=== PATIENT | female | born 1960 | race Caucasian/White ===

== ENCOUNTER 2017-07-17 00:07 | Emergency (ER) | payer BC, OTHER ==
[2017-07-17 01:07] VITALS: BP 153/101
--- NOTE | 2017-07-17 01:08 | EDM.PDOC ---
ED HPI GENERAL MEDICAL PROBLEM - General Chief Complaint: Skin Complaint Stated Complaint: STEPPED ON A NEEDLE Time Seen by Provider: 07/17/17 01:02 Source of Information: Reports: Patient, RN Notes Reviewed History Limitations: Reports: No Limitations - History of Present Illness INITIAL COMMENTS - FREE TEXT/NARRATIVE: 57-year-old female presents to the emergency department today where she stepped on a sewing needle left foot and she is concerned it may have broken off the area is exquisitely tender around the puncture wound Left Feet Pain Score (Numeric/FACES): 2 - Related Data Allergies Allergy/AdvReac Type Severity Reaction Status Date / Time ciprofloxacin [From Cipro] Allergy Cannot Verified 07/17/17 00:55 Remember codeine Allergy Itching Verified 07/17/17 00:55 Home Meds: Home Meds Levothyroxine Sodium [Levothyroxine Sodium] 1 tab PO DAILY 08/02/16 [History] Past Medical History 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: Musculoskeletal History: Reports: Fracture Endocrine/Metabolic History: Reports: Hypothyroidism - Infectious Disease History Infectious Disease History: Reports: Chicken Pox, Measles, Mumps - Past Surgical History HEENT Surgical History: Reports: Oral Surgery GI Surgical History: Reports: Appendectomy, Small Bowel Social & Family History - Tobacco Use Smoking Status *Q: Current Every Day Smoker Years of Tobacco use: 35 Packs/Tins Daily: 0.2 Used Tobacco, but Quit: No Second Hand Smoke Exposure: Yes - Caffeine Use Caffeine Use: Reports: Coffee, Soda, Tea - Alcohol Use Days Per Week of Alcohol Use: 0 - Recreational Drug Use Recreational Drug Use: No ED ROS GENERAL - Review of Systems Review Of Systems: See Below Constitutional: Reports: No Symptoms Skin: Reports: Wound ED EXAM, SKIN/RASH Exam: See Below Text/Narrative:: Examination of the left foot there is a small puncture wound plantar surface near the fifth metatarsal joint, exquisitely tender to touch pedal pulse is +2 Exam Limited By: No Limitations General Appearance: Alert, WD/WN, No Apparent Distress Course - Vital Signs Last Recorded V/S: Last Vital Signs Temp 97.7 F 07/17/17 01:10 Pulse 79 07/17/17 01:10 Resp 16 07/17/17 01:10 BP 153/101 H 07/17/17 01:10 Pulse Ox 96 07/17/17 01:10 - Orders/Labs/Meds Orders: Active Orders 24 hr Category Date Time Status Vaccines to be Administered [RC] PER UNIT ROUTINE Care 07/17/17 01:51 Active Foot Comp Min 3V Lt [CR] Stat Exams 07/17/17 01:05 Taken Meds: Medications Discontinued Medications Generic Name Dose Route Start Last Admin Trade Name Sophia PRN Reason Stop Dose Admin Cefazolin Sodium 1 gm 07/17/17 01:47 Ancef IM 07/17/17 01:48 ONETIME ONE Diphtheria/Tetanus/Acell Pertussis 0.5 ml 07/17/17 01:51 Adacel IM 07/17/17 01:52 .ONCE ONE Departure - Departure Time of Disposition: 01:56 Disposition: Home, Self-Care 01 Condition: Good Clinical Impression: Foreign body foot/toe - Discharge Information Referrals: Geno Marlow PA [Primary Care Provider] - Forms: ED Department Discharge Additional Instructions: Use hydrocodone as needed for pain control, please report to outpatient surgery at 8 AM tomorrow morning to be registered for an exploratory surgery to remove the sewing needle from her foot - My Orders Last 24 Hours: My Active Orders 07/17/17 01:05 Foot Comp Min 3V Lt [CR] Stat 07/17/17 01:51 Vaccines to be Administered [RC] PER UNIT ROUTINE - Assessment/Plan Last 24 Hours: My Active Orders 07/17/17 01:05 Foot Comp Min 3V Lt [CR] Stat 07/17/17 01:51 Vaccines to be Administered [RC] PER UNIT ROUTINE Plan: Assessment Acuity = acute Site and laterality = foreign body left foot Etiology = stepped on a sewing needle Manifestations = none Location of injury = Home Lab values = x-ray displays the foreign body Plan Called discussed case with Dr. Preston general surgeon on-call plan for exploratory surgery and removal of the foreign body tomorrow morning at 9:00, she is given 1 g Ancef tetanus was updated provided hydrocodone 5/325 one tab by mouth 3 times a day when necessary total #10 Patient was in agreement with the plan all questions were answered, they were instructed to return to the emergency department or call for worsening symptoms. This note was dictated using [employer] voice recognition software please call with any questions.
[2017-07-17] MEDS ORDERED: ceFAZolin 1 GM Vial IM ONE (01:47)
[2017-07-17] MEDS ORDERED: Diphtheria,Pertussis(Acell),Tetanus Vaccine 0.5 ML SDV IM ONE (01:51)
--- NOTE | 2017-07-19 09:13 | CR ---
Left foot There is a needle fragment embedded within the plantar soft tissues of the lateral forefoot. There is no bone involvement. Impression: 1. Foreign body lateral aspect of the forefoot.
== END 2017-07-17 02:50 | disposition home or self-care (01) ==
LOC: JP.ED 00:07
DX: S91.342A Puncture wound with foreign body, left foot, initial encounter (principal); E03.9 Hypothyroidism, unspecified; F17.210 Nicotine dependence, cigarettes, uncomplicated; Z88.5 Allergy status to narcotic agent; Z88.1 Allergy status to other antibiotic agents; Z79.899 Other long term (current) drug therapy; Z23 Encounter for immunization; W45.8XXA Other foreign body or object entering through skin, initial encounter
CPT/HCPCS: 73630; 90471; 90715; 96372; 99284; J0690

== ENCOUNTER → 2017-07-17 | Day surgery (SDC) | payer BC ==
[~2017-07-17] MED LIST: Bacitracin Oint 1 GM U/D Packet ONE; Bupivacaine 0.5% 50 ML MDV ONE; Lidocaine 1% with EPINEPHrine 1:100,000 50 ML MDV ONE; Midazolam 1 MG/ML 2 ML SDV ONE; Propofol 200 MG/20 ML SDV ONE; ceFAZolin 2 GM in Premix Bag 1 BAG IV ONE; fentaNYL 100 MCG/2 ML SDV ONE
[2017-07-17 12:29] VITALS: BP 130/81
--- NOTE | 2017-07-19 10:42 | OR ---
DATE OF PROCEDURE: 07/17/2017 PROCEDURE: Removal of foreign body, left foot, needle, located between fourth and fifth metatarsal. COMPLICATIONS: None. PARISH NURSE: None. ANESTHESIA: MAC/local. RISKS: Risks, benefits, alternatives, limitations including, but not limited to infection, bleeding, injury to neurovascular structures were explained to the patient, and she wished to proceed. PROCEDURE IN DETAIL: The patient was placed in supine position. The foot was prepped and draped. Using intraoperative fluoroscopy, the needle was localized. An incision approximately 5 mm to a centimeter was made, and this allowed entry and extraction of the needle with mild difficulty. Of note, no blind grabbing or any other maneuvers which could damage nerves or blood vessels were performed. The wound was then irrigated and closed with 3-0 Vicryl and 3-0 Prolene interrupted stitches. The patient tolerated the procedure well. Adebayo Preston MD /[id number]
== END | disposition home or self-care (01) ==
LOC: EDSTATUS 08:36 → JP.SDS 09:32
PROVIDERS: ATTEND Surgery
DX: S91.342A Puncture wound with foreign body, left foot, initial encounter (principal); Z88.5 Allergy status to narcotic agent; Z88.8 Allergy status to other drugs, medicaments and biological substances; Z88.1 Allergy status to other antibiotic agents; E03.9 Hypothyroidism, unspecified; F17.210 Nicotine dependence, cigarettes, uncomplicated; Z79.899 Other long term (current) drug therapy; Z23 Encounter for immunization; W45.8XXA Other foreign body or object entering through skin, initial encounter
CPT/HCPCS: 10120; 73630; 76000; 90471; 90715; 96372; 99284; J0690; J2250; J2704; J3010

== ENCOUNTER 2017-08-26 07:59 | Day surgery (SDC) | payer BC ==
[~2017-08-26 07:59] MED LIST changes: -Bacitracin Oint 1 GM U/D Packet ONE; -Bupivacaine 0.5% 50 ML MDV ONE; -Lidocaine 1% with EPINEPHrine 1:100,000 50 ML MDV ONE; +Meropenem 500 MG SDV ONE; -Midazolam 1 MG/ML 2 ML SDV ONE; -Propofol 200 MG/20 ML SDV ONE; -ceFAZolin 2 GM in Premix Bag 1 BAG IV ONE; -fentaNYL 100 MCG/2 ML SDV ONE
[2017-08-26] MEDS: Bupivacaine 0.5% 50 ML MDV ONE ×2 (08:06→09:25)
[2017-08-26] MEDS: Lidocaine 1% with EPINEPHrine 1:100,000 50 ML MDV ONE ×2 (08:06→09:25)
[2017-08-26] MEDS ORDERED: Propofol 200 MG/20 ML SDV ONE (08:14)
[2017-08-26] MEDS ORDERED: fentaNYL 100 MCG/2 ML SDV ONE (08:14)
[2017-08-26] MEDS ORDERED: Midazolam 1 MG/ML 2 ML SDV ONE (08:14)
[2017-08-26] MEDS ORDERED: Dextrose 5%-Lactated Ringers 1,000 ML IV SCH (08:45)
[2017-08-26 11:10] VITALS: BP 135/76
--- NOTE | 2017-08-30 16:48 | OR ---
DATE OF PROCEDURE: 08/26/2017 PREOPERATIVE DIAGNOSIS: Incompletely drained infected puncture wound, plantar aspect of the left foot. POSTOPERATIVE DIAGNOSIS: Incompletely drained infected puncture wound, plantar aspect of the left foot. OPERATIVE PROCEDURE: 1. Drainage of partially drained and infected wound, plantar aspect of the left foot (02018). 2. Debridement of soft tissue extending from skin and subcutaneous tissue down to the underlying fascia at infected wound site, plantar aspect of the left foot ([id number]). ANESTHESIA: Local plus IV sedation. INDICATIONS FOR PROCEDURE: The patient presents with an open wound after removal of foreign body from the plantar aspect of her left foot. This has become a very tender area that appears to have some degree of infection and incomplete drainage due to the relative indolent tract inherent in the original injury. Plan is to proceed with drainage and debridement of this in the operating room. Potential risks including further bleeding and infection were all gone over and the patient wishes to proceed. DETAILS OF PROCEDURE: The patient was taken to the operating room, placed in a supine position. IV sedation was administered, after which the left foot and surrounding areas were prepped and draped. Initially, a circular incision around the puncture site was made; somewhat purulent material was then expressed where the cultures were obtained. Upon drainage of this, further skin and subcutaneous tissue of the underlying fascia were then debrided to create a relatively open wound, which would facilitate adequate drainage and a secondary closure. The wound was packed with iodoform gauze. Dressing applied. There were no other complications. The patient was taken to the recovery room in satisfactory condition. Terence Moran MD /[id number]
== END 2017-08-26 11:22 | disposition home or self-care (01) ==
LOC: JP.SDS 07:59
PROVIDERS: ATTEND Surgery
DX: S91.332A Puncture wound without foreign body, left foot, initial encounter (principal); J45.909 Unspecified asthma, uncomplicated; K21.9 Gastro-esophageal reflux disease without esophagitis; E03.9 Hypothyroidism, unspecified; E66.9 Obesity, unspecified; Z88.1 Allergy status to other antibiotic agents; Z88.8 Allergy status to other drugs, medicaments and biological substances; F17.210 Nicotine dependence, cigarettes, uncomplicated; X58.XXXA Exposure to other specified factors, initial encounter
CPT/HCPCS: 10061; 11043; 87070; 87075; 87077; 87186; 87205; J2250; J2704; J3010; J7042; J2185

== ENCOUNTER 2018-10-19 20:32 | Emergency (ER) | payer BC ==
[2018-10-19 20:55] VITALS: BP 164/96
--- NOTE | 2018-10-19 21:42 | EDM.PDOC ---
ED HPI GENERAL MEDICAL PROBLEM - General Chief Complaint: ENT Problem Stated Complaint: SORE THROAT Time Seen by Provider: 10/19/18 20:34 Source of Information: Reports: Patient, Family () History Limitations: Reports: No Limitations - History of Present Illness INITIAL COMMENTS - FREE TEXT/NARRATIVE: chief complaint: sore throat and cough This is a 58 year old female present to ER after being sent home from work. 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 She reports last night started to get sick, throat is so sore can barely speak, cough is starting today. immunization: Flu shot given this season Tobacco use: smoke 1/2 to 1 pack per day his Onset: Gradual Onset Date: 10/18/18 Duration: Day(s): (1), Getting Worse Location: Reports: Chest (cough), Other (sore throat ) Quality: Reports: Ache, Burning Severity: Moderate Improves with: Reports: None Worsens with: Reports: None Context: Reports: Sick Contact (exposure to sick people at work) Associated Symptoms: Reports: Cough, Fever/Chills, Malaise - Related Data Allergies Allergy/AdvReac Type Severity Reaction Status Date / Time ciprofloxacin [From Cipro] Allergy Cannot Verified 10/19/18 21:05 Remember codeine Allergy Itching Verified 10/19/18 21:05 diphenhydramine Allergy Itching Verified 10/19/18 21:05 [From Benadryl] naproxen Allergy Body Aches Verified 10/19/18 21:05 Home Meds: Home Meds Levothyroxine Sodium 50 mcg PO DAILY 08/02/16 [History] Ascorbic Acid [Vitamin C] 1,000 mg PO DAILY 08/25/17 [History] Cetirizine HCl [Zyrtec] 10 mg PO BID PRN 08/25/17 [History] L.acidoph,Paracasei, B.lactis [Probiotic] 1 each PO DAILY 08/25/17 [History] Magnesium Oxide [Magnesium] 400 mg PO DAILY 08/25/17 [History] Multivitamin [Multi-Vitamin Daily] 1 each PO DAILY 08/25/17 [History] Sandy-3/DHA/Epa/Fish Oil [Sandy-3 Fish Oil 1,000 MG Sfgl] 1,000 mg PO DAILY 11/07 [History] Fluticasone Propionate [Flonase] 1 puff NASBOTH DAILY PRN 08/26/17 [History] metFORMIN HCl [Metformin HCl ER] 500 mg PO BID 10/19/18 [History] Past Medical History HEENT History: Reports: None Cardiovascular History: Reports: None Respiratory History: Reports: Asthma Gastrointestinal History: Reports: Bowel Obstruction Genitourinary History: Reports: None 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: Reports: Dysfunctional Uterine Bleeding, Musculoskeletal History: Reports: Fracture Neurological History: Reports: Concussion Psychiatric History: Reports: None Endocrine/Metabolic History: Reports: Diabetes, Type II, Hypothyroidism Hematologic History: Reports: Blood Transfusion(s) Immunologic History: Reports: None Oncologic (Cancer) History: Reports: None Dermatologic History: Reports: None - Infectious Disease History Infectious Disease History: Reports: Chicken Pox, Measles, Mumps - Past Surgical History Head Surgeries/Procedures: Reports: None HEENT Surgical History: Reports: Oral Surgery Other HEENT Surgeries/Procedures: cleft palate Cardiovascular Surgical History: Reports: None Respiratory Surgical History: Reports: None GI Surgical History: Reports: Appendectomy, Small Bowel Female Surgical History: Reports: D&C, Tubal Ligation Endocrine Surgical History: Reports: None Neurological Surgical History: Reports: None Musculoskeletal Surgical History: Reports: None Oncologic Surgical History: Reports: None Dermatological Surgical History: Reports: None Social & Family History - Family History Family Medical History: Noncontributory - Tobacco Use Smoking Status *Q: Current Every Day Smoker Years of Tobacco use: 23 Packs/Tins Daily: 0.5 - Caffeine Use Caffeine Use: Reports: Coffee - Recreational Drug Use Recreational Drug Use: No - Living Situation & Occupation Living situation: Reports: Occupation: Employed ED ROS ENT - Review of Systems Review Of Systems: See Below Constitutional: Reports: Fever, Malaise HEENT: Reports: Throat Pain, Throat Swelling Respiratory: Reports: Cough Cardiovascular: Reports: No Symptoms Endocrine: Reports: No Symptoms GI/Abdominal: Reports: No Symptoms Skin: Reports: No Symptoms Neurological: Reports: No Symptoms Psychiatric: Reports: No Symptoms Hematologic/Lymphatic: Reports: No Symptoms Immunologic: Reports: No Symptoms ED EXAM, ENT - Physical Exam Exam: See Below Exam Limited By: No Limitations General Appearance: Alert, WD/WN, Mild Distress (appear ill, voice is hoarse, wearing mask. ) Eye Exam: Bilateral Eye: Normal Inspection Ears: Normal External Exam, Normal Canal, Hearing Grossly Normal, Normal TMs Nose: Normal Inspection, Normal Mucousa, No Blood Mouth/Throat: Normal Gums, Normal Lips, Normal Teeth, Hoarse Voice, Tonsillar Erythema, Tonsillar Swelling Head: Atraumatic, Normocephalic Neck: Lymphadenopathy (R), Lymphadenopathy (L) Respiratory/Chest: Decreased Breath Sounds (bilateral), Rhonchi (with cough), Other (cough noted.) Cardiovascular: Regular Rate, Rhythm, No Edema, No Murmur GI/Abdominal: Normal Bowel Sounds, Soft, Non-Tender Back: Normal Inspection, Full Range of Motion Extremities: Normal Inspection, Normal Range of Motion Neurological: No Motor/Sensory Deficits Psychiatric: Normal Affect, Normal Mood Skin: Warm, Dry, Intact, Normal Color, No Rash Lymphatic: Adenopathy (cervical) Course - Vital Signs Last Recorded V/S: Last Vital Signs Temp 36.2 C 10/19/18 21:07 Pulse 63 10/19/18 21:07 Resp 16 10/19/18 21:07 BP 164/96 H 10/19/18 21:07 Pulse Ox 98 10/19/18 21:07 - Orders/Labs/Meds Orders: Active Orders 24 hr Category Date Time Status CULTURE STREP A CONFIRMATION [RM] Urgent Lab 10/19/18 20:57 Results STREP SCRN A RAPID W CULT CONF [RM] Urgent Lab 10/19/18 20:57 Results - Re-Assessments/Exams Free Text/Narrative Re-Assessment/Exam: 10/19/18 21:50 labs rapid strep negative, influenza A and B negative. 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 Departure - Departure Time of Disposition: 21:38 Disposition: Home, Self-Care 01 Condition: Good Clinical Impression: Tonsillitis, Cough - Discharge Information *PRESCRIPTION DRUG MONITORING PROGRAM REVIEWED*: Not Applicable *COPY OF PRESCRIPTION DRUG MONITORING REPORT IN PATIENT MAURA: Not Applicable Instructions: Tonsillitis, [id number], Cough, Adult, [id number] Referrals: Geno Marlow PA [Primary Care Provider] - Forms: ED Department Discharge, ED Return to Work/School Form Care Plan Goals: Tonsillitis with cough -Zithromax 250 mg, take 2 tablets now, then one tablet daily x 4 days -take over the counter Tylenol or Motrin as directed for pain or fever -rest -push fluids -no work x 3 days or until well Return to ER if has any worsen of symptoms or not improved. - Problem List & Annotations (1) Tonsillitis SNOMED Code(s): 28719175 Code(s): J03.90 - ACUTE TONSILLITIS, UNSPECIFIED Status: Acute Priority: High Current Visit: Yes (2) Cough SNOMED Code(s): 37581450 Code(s): R05 - COUGH Status: Acute Priority: High Current Visit: Yes - Problem List Review Problem List Initiated/Reviewed/Updated: Yes - My Orders Last 24 Hours: My Active Orders 10/19/18 20:57 CULTURE STREP A CONFIRMATION [RM] Urgent STREP SCRN A RAPID W CULT CONF [RM] Urgent - Assessment/Plan Last 24 Hours: My Active Orders 10/19/18 20:57 CULTURE STREP A CONFIRMATION [RM] Urgent STREP SCRN A RAPID W CULT CONF [RM] Urgent Plan: Tonsillitis with cough -Zithromax 250 mg, take 2 tablets now, then one tablet daily x 4 days -take over the counter Tylenol or Motrin as directed for pain or fever -rest -push fluids -no work x 3 days or until well Return to ER if has any worsen of symptoms or not improved.
== END 2018-10-19 21:49 | disposition home or self-care (01) ==
LOC: JP.ED 20:32
DX: J03.90 Acute tonsillitis, unspecified (principal); R05 Cough; J45.909 Unspecified asthma, uncomplicated; E11.9 Type 2 diabetes mellitus without complications; E03.9 Hypothyroidism, unspecified; F17.210 Nicotine dependence, cigarettes, uncomplicated; Z88.1 Allergy status to other antibiotic agents; Z88.5 Allergy status to narcotic agent; Z79.899 Other long term (current) drug therapy; Z79.84 Long term (current) use of oral hypoglycemic drugs
CPT/HCPCS: 87081; 87430; 87804; 87804-59; 99282

== ENCOUNTER 2018-11-03 10:59 | Emergency (ER) | payer BC ==
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
--- NOTE | 2018-11-03 12:28 | CRLCR ---
INDICATION: Shortness of breath. COMPARISON: None. FINDINGS/IMPRESSION: AP chest radiograph. Lungs are clear and no pleural effusions are evident. Heart size appears normal. Included bones are unremarkable. There is mild soft tissue prominence of the mediastinal contour in the right hilar region for which further evaluation with upright PA and lateral chest radiographs is recommended. Dictated by Troy Ackerman MD @ 11/03/2018 12:26:35 PM Dictated by: Troy Ackerman MD @ 11/03/2018 12:26:51 (Electronically Signed)
[2018-11-03] MEDS ORDERED: Gadoteridol 279.3 MG/ML 20 ML SDV IV SCH (12:45)
--- NOTE | 2018-11-03 13:17 | CRLMR ---
INDICATION: Left extremity weakness TECHNIQUE: Brain MRI with contrast. The following sequences were obtained: Sagittal T1 weighted sequence. DWI and ADC mapping sequences. Axial FLAIR and T2 weighted sequences. Axial and coronal T1 weighted post-contrast sequences. 17 cc of ProHance gadolinium based contrast agent was used. COMPARISON: No comparisons. FINDINGS: Within the right posterior frontal enriquez radiata, superior temporal lobe, temporal stem and temporoparietal junction there is a large enhancing intra-axial mass with irregular margins central necrosis. It measures 5.1 x 6.1 centimeters in axial plane and 5.9 centimeters in coronal plane. The medial margin of the lesion contacts the ependymal surface of the right lateral ventricle, in the lateral margin of the lesion involves the white matter underlying the right lateral pre and postcentral gyrus. The medial margin of the lesion immediately abuts the lateral thalamic capsule. There is a large serpiginous flow void along the anterior margin of the lesion which likely reflects a parasatized vessel. Additional linear enhancement within the overlying cerebral sulci could reflect hyperperfusion due to high tumor vascularity, or less likely, leptomeningeal spread of disease. There is a moderate amount of surrounding edema, which extends superiorly within the right frontoparietal centrum semiovale, anteriorly to involve the posterior basal ganglia and inferiorly to involve much of the superior temporal lobe. Local mass effect results in partial effacement of the right lateral ventricle body and atrium, and there is approximately 3 millimeters of right to left midline shift at the level of the mid septum pellucidum. No other enhancing lesions are identified within the brain. No diffusion abnormalities. Mild generalized cerebral volume loss. Scattered T2 hyperintensities within the white matter not immediately adjacent to the primary lesion likely reflects chronic microvascular ischemic change. The sella turcica, its contents and adjacent structures appear normal. All the major intracranial vascular structures demonstrate normal flow-related signal voids and intraluminal enhancement as far as visualized. The orbital contents are normal. No marrow signal abnormality. Trace mucosal thickening within the left maxillary sinus subtalar recess. No signal abnormality within the mastoid air cells. The scalp and other imaged soft tissue structures are normal in appearance. IMPRESSION: 1. Large enhancing mass involving the right posterior frontal, parietal and superior temporal lobes demonstrates substantial local mass effect with partial right lateral ventricular effacement and mild right to left midline shift. The favored differential consideration would be a high-grade glioma, although an isolated large intracranial metastasis could also have this appearance. Neurosurgical referral recommended. Results discussed with Dr. Sam Davis at 1:09 p.m., 11/03/2018. 2. No evidence of acute infarction. 3. Mild cerebral volume loss and mild chronic microvascular ischemic changes. Dictated by Nikko Davis MD @ Nov 03 2018 12:58PM Signed by Dr. Nikko Davis @ Nov 03 2018 1:16PM
[2018-11-03] MEDS ORDERED: cefTRIAXone 1 GM in Sodium Chloride 0.9% 50 ML IV ONE (13:43)
[2018-11-03] MEDS ORDERED: Sodium Chloride 0.9% 10 ML Syringe FLUSH ONE (13:48)
[2018-11-03] MEDS ORDERED: Sodium Chloride 0.9% 75 ML IV ONE (13:48)
[2018-11-03] MEDS ORDERED: Iopamidol 612 MG/ML 100 ML Bottle IV SCH (14:00)
--- NOTE | 2018-11-03 14:42 | CRLCT ---
INDICATION: Fullness of mediastinum on chest x-ray. CT CHEST WITH CONTRAST TECHNIQUE: Multidetector CT imaging was performed through the chest following intravenous contrast administration using 100 mL Isovue 300. Coronal and sagittal reconstructions were generated. COMPARISON: 11/03/2018 chest radiograph. FINDINGS: Lungs and airways: Mild dependent and bibasilar lung atelectasis. No confluent infiltrates, suspicious nodules, or masses. Central airways are patent. Pleura and pleural spaces: No pleural effusions or pneumothorax. Heart and mediastinum: Normal heart size. No significant pericardial effusion. No pathologically enlarged mediastinal lymph nodes. Vascular structures: Aneurysmal dilation of the ascending aorta measuring up to 4.9 centimeters in AP diameter. No evidence of aortic dissection. Chest wall and axillae: Mild pectus excavatum. No mass or axillary lymphadenopathy. Osseous structures: Minor spinal degenerative changes. No acute fractures identified. Upper abdomen: Fatty infiltration of the liver. IMPRESSION: 1. Aneurysmal dilation of the ascending aorta measuring 4.9 centimeters in diameter. No aortic dissection or other acute findings. 2. Nonacute additional findings as detailed above. JAYLA KEENE MD [employer] Dictated by Troy Keene MD @ 11/03/2018 2:31:20 PM Dictated by: Troy Keene MD @ 11/03/2018 14:41:29 (Electronically Signed)
[2018-11-03] MEDS ORDERED: levETIRAcetam 500 MG in Sodium Chloride 0.9% 100 ML IV ONE ×2 (15:26→16:00)
[2018-11-03] MEDS ORDERED: Dexamethasone 4 MG/ML SDV IVPUSH ONE (15:27)
[2018-11-03 15:58] VITALS: BP 117/72
[2018-11-03] MEDS ORDERED: Ondansetron 4 MG/2 ML SDV IVPUSH ONE (16:08)
== END 2018-11-03 16:30 ==
LOC: JP.ED 10:59
DX: G93.9 Disorder of brain, unspecified (principal); E11.9 Type 2 diabetes mellitus without complications; F17.210 Nicotine dependence, cigarettes, uncomplicated; J45.909 Unspecified asthma, uncomplicated; E03.9 Hypothyroidism, unspecified; Z88.1 Allergy status to other antibiotic agents; Z88.5 Allergy status to narcotic agent; Z88.8 Allergy status to other drugs, medicaments and biological substances; Z79.899 Other long term (current) drug therapy
CPT/HCPCS: 36415; 51702; 70553; 71045; 71260; 80053; 81001; 83735; 84443; 85025; 86140; 87086; 87088; 87186; 96365; 96375; 99285; A9576; A9579; J0696; J1100; J1953; J2405; J7030; J7050; Q9967